=== PATIENT | male | born 1950 | race Caucasian/White ===

== ENCOUNTER → 2019-06-03 | Outpatient (CLI) | payer OTHER ==
[~2019-06-03] MED LIST: ALLOPURINOL 30300 M2 PO; ASPIR 8181 M1 PO; ASPIR-TRIN325 MG PO; EFFIENT10 MG PO; HYDROCHLOROTHIA25 M2 PO; LIPITOR 20 MG T20 M1 PO; LIPITOR80 MG PO; LOSARTAN POTAS100 MG PO; METOPROLOL SUCC25 M1 PO; NITROGLYCERIN0.4 MG SUBLING; OMEPRAZOLE 20 M20 M1 PO; PROTONIX40 M1 PO; PROZAC20 MG PO
== END ==
LOC: SJCVC 14:07
DX: R94.31 Abnormal electrocardiogram [ECG] [EKG] (principal); I11.9 Hypertensive heart disease without heart failure; I25.10 Atherosclerotic heart disease of native coronary artery without angina pectoris; M19.90 Unspecified osteoarthritis, unspecified site; F32.9 Major depressive disorder, single episode, unspecified; E78.00 Pure hypercholesterolemia, unspecified; I21.3 ST elevation (STEMI) myocardial infarction of unspecified site; K21.9 Gastro-esophageal reflux disease without esophagitis; Z95.5 Presence of coronary angioplasty implant and graft; Z79.82 Long term (current) use of aspirin; Z79.899 Other long term (current) drug therapy

== ENCOUNTER → 2020-02-02 | Outpatient (CLI) | payer OTHER ==
[~2020-02-02] MED LIST changes: +EZETIMIBE10 MG PO; +ROSUVASTATIN CA40 MG PO
== END ==
LOC: SJCVCIMAG 07:00
PROVIDERS: ATTEND Internal Medicine Cardiovascular Disease
DX: I34.0 Nonrheumatic mitral (valve) insufficiency (principal); I25.10 Atherosclerotic heart disease of native coronary artery without angina pectoris; I10 Essential (primary) hypertension; E78.00 Pure hypercholesterolemia, unspecified; K21.9 Gastro-esophageal reflux disease without esophagitis; Z95.5 Presence of coronary angioplasty implant and graft; Z79.899 Other long term (current) drug therapy; Z87.891 Personal history of nicotine dependence

== ENCOUNTER → 2020-02-09 | Outpatient (CLI) | payer OTHER ==
[~2020-02-09] VITALS: Ht 190.5 cm; Wt 137.9 kg
[2020-02-09 07:01] VITALS: BP 148/63
--- NOTE | 2020-02-09 07:46 | EKG ---
[facility] [place] [address] ELECTROCARDIOGRAM REPORT Name: PATRICK DOZIER Room #: [facility]#: [id number] Admission: 02/09/20 Attend Phys: Maxi Lackey MD, Discharge: Date of : 48 Report #: [id number] THIS REPORT FOR: cc: Giuseppe Sun MD, Eric K. 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: [facility] : 1950 Requested By: Maxi Lackey Order Number: [id number] MD: Jh Rivera Measurements Intervals [place] Rate: 48 P: -12 MI: 190 QRS: -33 QRSD: 112 T: QT: 471 QTc: 426 Interpretive Statements Sinus bradycardia Leftward axis Voltage criteria for LVH Nonspecific T wave abnormality Compared to ECG 04/21/2016 07:53:56 No significant change was found Electronically Signed On 02-09-2020 7:46:24 CDT by Jh Rivera [email or web address] <ELECTRONICALLY SIGNED> By: Jh Rivera MD, [facility] 02/09/20 0746 Jh Rivera MD, [facility] /EPI
--- NOTE | 2020-02-09 16:58 | CATHLAB ---
[facility] [place] [address] INVASIVE PROCEDURE REPORT Name: DANIELANGELITAPATRICK Room #: [facility] Malcom.#: [id number] Admission: 02/09/20 Attend Phys: Maxi Lackey MD, Discharge: Date of : 48 Report #: [id number] THIS REPORT FOR: cc: Giuseppe Sun MD, Eric K. MD Mancuso, Gerald M. MD [facility] ~ APPROVED REPORT Study performed: 02/09/2020 07:40:33 Patient Details The patient is a 70 year-old male Event Personnel Maxi Lackey Emergency Services Dispatcher, Mireya Huizar RN RN, Yvonne Russo RTR, LIDA Scrub, Narciso Echeverria RTR Scrub, Kenia Gallagher Monitor, Carolina Catherine RN manager mining Performed Art Access - R femoral artery* Left Heart Cath w/or w/o Coronaries [id number] [facility] Aortogram Abdominal Peripheral Angio 202236 Hemostasis w/ Mynx 16433 Initial Mod Sed Same Phys/QHP Gr5y 897582 26250 Mod Sed Same Phys/QHP Ea 170112 FFR 1140084 FFR Indication Chest pain Procedure Narrative The Right Groin^ was infiltrated with subcutaneous anesthesia. A PINNACLE 6FR Sheath #[id number] sheath was inserted into the RFA 5F^. Coronary angiography was performed using coronary diagnostic catheters. The right coronary system was accessed and visualized with a JR4 catheter. The left coronary system was accessed and visualized with a JL4 catheter. The left ventricle was accessed and visualized with a STR PIG catheter. Left ventriculogram was performed in 30 degree projection. There was no hematoma. Intraoperative Conscious Sedation Fentanyl mcg Versed mg Fluoro Time: 4.50 minutes Dose: DAP 12641.90 cGycm2 Hemodynamics [facility] [place] [address] INVASIVE PROCEDURE REPORT Name: PATRICK DOZIER Room #: [facility]#: [id number] Admission: 02/09/20 Attend Phys: Maxi Lackey, Discharge: Date of : 48 Report #: [id number] The aortic pressure is 161/66 mmHg with a mean of 109 mmHg. The left ventricular pressure is 142/11 mmHg with a mean of mmHg. The left ventricular end diastolic pressure is 25 mmHg. PCI Technique Lesion A LAUNCHER 6FR EBU 3.5 #467055 Guide Catheter was used to engage the LAD ostium. A Aeris Pressure Wire 300 Interventional Guidewire was used to cross the lesion. BALLOON DILATION FFR WAS PERFORMED ON THE LAD. PLAD = .93 AND MLAD = .90. NO INTERVENTION WAS DONE. Conclusion #1. Left main mildly calcified widely patent giving rise to LAD and circumflex. #2 the LAD has moderate disease. There is a proximal eccentric 60 to 70% lesion at a septal credentialing assistant diagonal takeoff. And then mid vessel has an eccentric 70 to 75% moderately calcified longer lesion feeling diffusely disease wraparound LAD. FFR's pressure/flow wire was performed on the LAD. 0.93 IFR on the proximal lesion 0.9 no IFR on the proximal mid LAD lesion. Will continue to follow this disease closely no current indication for intervention based on these numbers. #3 circumflex OM is nondominant. There is high-grade distal disease and a very small distal OM. This has not progressed since the 2016 film. 40% and ostial first OM. Nondominant #4 dominant right coronary artery has an eccentric focal in-stent restenosis of 50% and a mid RCA stent with otherwise preserved distal vessel anatomically dominant. #5 normal left ventricular size and systolic function EF 55% #6 abdominal aortogram mild aortic ectasia no significant aneurysm. Renal arteries appear to be widely patent Recommendations and plan: Continue aggressive risk factor modification. Will initiate outpatient cardiac rehab at [facility] for stable angina. There is been minimal to no angiographic progression of these LAD lesions. Physiologic data suggests stenosis which is not physiologically flow-limiting in the proximal LAD. Will follow that up with serial stress testing pharmacologic nuclear considering this in 6 to 12 months or sooner depending on symptoms. <ELECTRONICALLY SIGNED> By: Maxi Lackey MD, FACC 02/09/201657 57 57 Maxi aLckey MD, FACC /INF
== END | disposition home or self-care (01) ==
LOC: CATH 06:34
PROVIDERS: ATTEND Internal Medicine Cardiovascular Disease
DX: R07.9 Chest pain, unspecified (principal); I25.10 Atherosclerotic heart disease of native coronary artery without angina pectoris; I77.811 Abdominal aortic ectasia; T82.855A Stenosis of coronary artery stent, initial encounter; I10 Essential (primary) hypertension; I25.2 Old myocardial infarction; E78.00 Pure hypercholesterolemia, unspecified; M19.90 Unspecified osteoarthritis, unspecified site; M10.9 Gout, unspecified; G47.33 Obstructive sleep apnea (adult) (pediatric); F32.9 Major depressive disorder, single episode, unspecified; K21.9 Gastro-esophageal reflux disease without esophagitis; E66.09 Other obesity due to excess calories; Z98.890 Other specified postprocedural states; Z79.899 Other long term (current) drug therapy; Z87.891 Personal history of nicotine dependence; Z82.49 Family history of ischemic heart disease and other diseases of the circulatory system; Z88.8 Allergy status to other drugs, medicaments and biological substances

== ENCOUNTER → 2020-10-06 | Outpatient (CLI) | payer OTHER | LOC: SJCVC 11:31 | PROVIDERS: ATTEND Internal Medicine Cardiovascular Disease | DX: R94.31 Abnormal electrocardiogram [ECG] [EKG] (principal); R00.1 Bradycardia, unspecified; I25.10 Atherosclerotic heart disease of native coronary artery without angina pectoris; I10 Essential (primary) hypertension; E78.00 Pure hypercholesterolemia, unspecified; R53.83 Other fatigue; K21.9 Gastro-esophageal reflux disease without esophagitis; M10.9 Gout, unspecified; E66.9 Obesity, unspecified; F32.9 Major depressive disorder, single episode, unspecified; Z87.891 Personal history of nicotine dependence; Z79.899 Other long term (current) drug therapy; Z79.82 Long term (current) use of aspirin; Z88.1 Allergy status to other antibiotic agents; Z88.8 Allergy status to other drugs, medicaments and biological substances ==